=== PATIENT | male | born 1955 | race Caucasian/White ===

== ENCOUNTER 2020-08-07 07:32 | Day surgery (SDC) | payer OTHER ==
--- OUTSIDE RECORDS SUMMARY | 2020-08-07 07:34 | XMS REPORT | Clinical Summary ---
:1955 Author Organization [facility] Address [address] [place] [address] Care Team Providers Name Role Phone Asked, No Pcp Primary Care Provider Unavailable Allergies Active Allergy Reactions Severity Noted Date Comments No Known Drug Allergies Medications Medication Sig Dispensed Refills Start Date End Date Status levETIRAcetam (KEPPRA XR) 0 02/23/2017 Active 750 mg tablet extended release 24 hr hydroCHLOROthiazide TAKE 1 90 capsule 2 09/15/2017 Active (MICROZIDE) 12.5 mg CAPSULE DAILY capsule lisinopril TAKE 1 TABLET 90 tablet 2 09/15/2017 Acti ve (PRINIVIL,ZESTRIL) 20 mg DAILY tablet lisinopril TAKE 1 TABLET 90 tablet 4 06/12/2018 Acti ve (PRINIVIL,ZESTRIL) 20 mg DAILY tablet hydroCHLOROthiazide TAKE 1 90 capsule 4 06/12/2018 Active (MICROZIDE) 12.5 mg CAPSULE DAILY capsule Active Problems Problem Noted Date Essential hypertension 05/02/2017 Mitral valve disorder 05/02/2017 Surgical History Surgery Date Site/Laterality Comments MITRAL VALVE REPAIR Medical History Medical History Date Comments Hypertension Valvular disease TIA (transient ischemic attack) 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 Syncope Social History Tobacco Use Types Packs/Day Years Used Date Never Smoker Alcohol Use Drinks/Week oz/Week Comments No Sex Assigned at Date Recorded Not on file Last Filed Vital Signs Not on file Plan of Treatment Health Maintenance Due Date Last Done Comments COLONOSCOPY SCREENING 2004 SHINGLES VACCINES (#1) 2004 65+ PNEUMOCOCCAL VACCINE (1 of 1 - PPSV23) 2019 INFLUENZA VACCINE 04/18/2020 Results Not on fileafter 08/07/[address] ([address]) [address] (Work) [id number] Advance Directives For more information, please contact: [phone] 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
--- OUTSIDE RECORDS SUMMARY | 2020-08-07 07:35 | XMS REPORT | Continuity of Care Document ---
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 04/15/20 Problem 03/27/2020 Mische r disorder, 15 Neuro systemic arterial (disorder) Nonruptured Resolved 04/15/20 Problem 03/27/2020 [facility] cerebral 15 Neuro aneurysm (disorder) Medications Medication Details Route Status Patient Ordering Order Source Instructions Provider Date levETIRAcetam 750 mg = 1 tab, Active Mi raffaele oral tablet, extended PO, Daily, 019 Neuro release # 90 tab, 2 Refill(s), Pharmacy: [facility] levETIRAcetam 750 mg = 1 tab, No Mi raffaele oral tablet, extended PO, Daily, Longer 019 Neuro release # 90 tab, Active Refill(s) 2, Pharmacy: [facility] levETIRAcetam 750 mg See Active Mis lelia oral tablet, extended Instructio 018 Neuro release ns, # 90 tab, Refill(s) 2, TAKE 1 TABLET DAILY, Pharmacy: [facility] levETIRAcetam 750 mg 1,500 mg = No Mischer oral tablet, extended 2 tab, PO, Longer 018 Neuro release QID, 0 Active Refill(s) Aspirin 81 MG Enteric 81 mg = 1 Active Mischer Coated Tablet tab, PO, 018 Neuro Daily, # 90 tab, 3 Refill(s) Hydrochlorothiazide 1 tab, PO, Active M ischer 12.5 MG / Lisinopril Daily, 0 018 Ne uro 20 MG Oral Tablet Refill(s) Allergies, Adverse Reactions, Alerts Substance Category Reaction Severity Reaction Status Date Comments S ource type Reported No Known Assertion Drug Misch er Medication allergy Neuro Allergies Immunizations No Data Provided for This Section Results No Data Provided for This Section Pathology Reports No Data Provided for This Section Diagnostic Reports No Data Provided for This Section Consultation Notes No Data Provided for This Section Discharge Summaries No Data Provided for This Section History and Physicals No Data Provided for This Section Vital Signs Vital Sign Value Date Comments Source Systolic (mm Hg) 113 [facility] Diastolic (mm Hg) 74 07/12/2019 [facility] Heart Rate 72 07/12/2019 [facility] Respitory Rate 16 07/12/2019 [facility] Height 190.5 cm 07/12/2019 [facility] Weight 107.727 07/12/2019 [facility] BMI Calculated 29.68 07/12/2019 [facility] Heart Rate 67 07/13/2018 [facility] BMI Calculated 30.06 07/13/2018 [facility] Weight 109.091 07/13/2018 [facility] Height 190.5 cm 07/13/2018 [facility] Systolic (mm Hg) 108 07/13/2018 [facility] Eufemia ro Diastolic (mm Hg) 76 07/13/2018 [facility] Ne uro Encounters Location Location Encounter Encounter Reason Attending ADM MI Stat us Source Details Type Number For Provider Date Date Visit Outpatient [id number] ALTHEA 07/13 [facility] [place] [facility] [id number] Althea 07/13 07/14 [facility] [place]2017 [facility] [place] [facility] Outside [id number] 09/05 09/07 [facility] /2017 [facility] [place] Records Outpatient [id number] Althea 07/12 [facility] [place] [facility] Outpatient [id number] Althea 07/12 07/13 [facility] [place] [facility] [place] Outpatient [id number] Althea 03/25 Active [facility] Outpatient [id number] Althea 03/25 [facility] [place] [facility] Ambulatory [id number] Althea 03/25 03/25 [facility] /2019 [facility] [place] [facility] Ambulatory [id number] Althea 03/25 03/25 [facility] Pre[facility]Reg [place] /2019 [facility] [place] Procedures No Data Provided for This Section Assessment and Plan No Data Provided for This Section Plan of Care No Data Provided for This Section Social History Social History Date Source Social History TypeResponse 07/12/2019 [facility] Smoking Status Former smoker; Exposure to Tobacco Smoke None; Cigarette Smoking Last 365 Days No; Reg Smoking Cessation Counseling No entered on: 07/12/19 Family History No Data Provided for This Section Advance Directives No Data Provided for This Section Functional Status No Data Provided for This Section
[2020-08-07] MEDS ORDERED: Ringers Lactate 1,000 ML IV ONE (07:53)
[2020-08-07] MEDS ORDERED: CEFAZOLIN/SWI 1gm 1 GM/10 ML SYR ONE (07:53)
[2020-08-07] MEDS ORDERED: BUPIVACAINE 0.5% PF 10 ML VIAL ONE (07:54)
[2020-08-07] MEDS ORDERED: FENTANYL CITR 100 MCG/2 ML ONE (10:02)
[2020-08-07] MEDS ORDERED: LIDOCAINE 1% MPF 5 ML VIAL ONE (10:02)
[2020-08-07] MEDS ORDERED: MIDAZOLAM HCL 2 MG/2 ML INJ ONE (10:02)
[2020-08-07] MEDS ORDERED: ROCURONIUM 50 MG/5 ML VIAL IV ONE (10:02)
[2020-08-07] MEDS ORDERED: propofoL 200 MG/20 ML VIAL IV ONE ×2 (10:02→10:40)
[2020-08-07] MEDS ORDERED: dexAMETHasone 10 MG/ML VIAL ONE (10:31)
[2020-08-07] MEDS ORDERED: KETOROLAC 30 MG/ML INJ ONE (10:31)
[2020-08-07] MEDS ORDERED: ONDANSETRON 4 MG/2 ML VIAL ONE (10:39)
[2020-08-07] MEDS ORDERED: NS 0.9% VIAL 10 ML ONE (10:44)
[2020-08-07] MEDS ORDERED: EPHEDRINE SULF 50 MG/ML VIAL ONE (10:44)
[2020-08-07] MEDS: HYDROMORPHONE HCL 1 MG/ML INJ ONE ×2 (11:22→11:27)
[2020-08-07] MEDS ORDERED: HYDROCODONE/APAP 7.5/325 MG TAB PO ONE (12:02)
--- NOTE | 2020-08-07 12:09 | OP ---
Date of Procedure: 08/07/2020 Surgeon: Gildardo Vasquez MD Automotive Mechanic: Lakia Hook. Preoperative Diagnosis: Right inguinal hernia. Postoperative Diagnosis: Right inguinal hernia. Procedure: Repair of right inguinal hernia. Estimated Blood Loss: Minimal. Specimen: Hernia sac. Finding: As above. Anesthesia: General. Complications: None. Disposition: The patient tolerated the procedure in stable condition, taken to Recovery in good gene ral condition. Procedure In Detail: The patient was brought to the OR and placed in supine position. General anest hesia begun. Patient was prepped and draped in the usual sterile fashion. Marcaine 0.5% was infiltr ated in a field block fashion in the right groin. Then a 4 cm incision was made between the anterior iliac, superior spine and the pubic tubercle. Subcutaneous tissue was divided. Shiloh's fascia was identified and divided. Aponeurosis was identified and mobilized inferiorly to expose shelving edge , and then aponeurosis opened through the external ring. The ilioinguinal nerve was identified and r etracted out of the field of dissection. Cord mobilized and skeletonized and large indirect sac pres ent was from the cord structures and high ligation with #1 Prolene suture ligature and free hand tie down. Hernia sac was excised and sent to Pathology as specimen. Marlex mesh plug was plac ed in that area. secured with VersaTack stapler and Onlay mesh. Placed on the inguinal floor, secur ed medially to the pubic tubercle, inferiorly to the shelving edge, laterally to each other and super ior to the conjoined tendon. Cord structures were placed back in anatomic location. Aponeurosis was not closed because it was very attenuated and had no strength at all to it and subsequently 3-0 ornamental metal worker joni used to reapproximate Shiloh's fascia and pierre used to close skin. Dressing was applied. Pat ient was awakened and taken to Recovery in good general condition. Discharge Note: The patient will go to Day Surgery and home when stable. Disposition: Home. Condition: Stable. Discharge Instructions: Resume home medications and diet. Activity as tolerated. No heavy lifting. Remove outer dressing in 2 days. Shower. Keep wound clean and dry. Follow up my office 10 days. Call for appointment. Tylenol No. 3 one tablet p.o. q.4 p.r.n. pain. Scrotal support and ice pack are ordered. JENNI/RADHA Voice ID: [id number] Report ID: [id number]
[2020-08-07] MEDS ORDERED: HYDROCODONE/APAP 7.5/325 MG TAB ONE (12:13)
[2020-08-07 12:54] VITALS: BP 125/66; TEMP 96.8; O2SAT 97
== END 2020-08-07 12:45 | disposition home health service (06) ==
LOC: OR 07:32
PROVIDERS: ATTEND Surgery
PROC: 0YU50JZ Supplement Right Inguinal Region with Synthetic Substitute, Open Approach (ICD-10-PCS; principal; 2020-08-07 09:00)
DX: K40.90 Unilateral inguinal hernia, without obstruction or gangrene, not specified as recurrent (principal); Z20.828 Contact with and (suspected) exposure to other viral communicable diseases; I10 Essential (primary) hypertension
CPT/HCPCS: 88302; 49505; U0002; J2704 ×2; J2250; J3010; J1100; J1170; J0690; J7120; J2405